=== PATIENT | male | born 1990 | race Two or more races ===

== ENCOUNTER 2017-11-02 15:08 | Emergency (ER) | payer SELFPAY ==
[~2017-11-02] VITALS: Ht 180.3 cm; Wt 111.1 kg
[2017-11-02 15:36] VITALS: BP 142/83
[2017-11-02] MEDS ORDERED: CEPH-264 PO (15:49)
--- NOTE | 2017-11-02 15:51 | PHYS DOC ---
Past Medical History Past Medical History: No Pertinent History Adult General Chief Complaint Chief Complaint: LACERATION/AVULSION HPI HPI 27-year-old male presents to ER with complaints of accidental laceration to left index finger last night approximately 5 PM while working on a vehicle and he thinks he cut finger on piece of metal on motor. Pt speaks primarily [place] and so translation phone offered for communication- Chantelle, girlfriend at bedside reports pt doesn't want to use phone and wants her to translate. She reports pt understands alot of [place] but isn't fluent in speaking [place]. Pt is uncertain of last tetanus update. Pt reports pain at laceration site with some difficulty bending distal joint of lt index finger. He denies taking any OTC medications for pain. He denies large amt of blood loss since injury- laceration has small amt of bleeding at time of initial exam. Pt denies numbness /tingling. Pt is rt hand dominant. Review of Systems Review of Systems Constitutional: Denies fatigue or weakness Musculoskeletal: Reports lt index finger pain at laceration site w/pain during bending/flexing of lt distal joint Integument: Denies rash or skin lesions. Reports laceration left index finger- no swelling, numbness or tingling Neurologic: Denies headache, focal weakness or sensory changes. Denies dizziness /lightheadedness All other systems were reviewed and found to be within normal limits, except as documented in this note. Current Medications Current Medications Current Medications Medications (Trade) Dose Ordered Sig/Rosina Start Time Stop Time Status Last Admin Dose Admin Diphtheria/ Tetanus/Acell Pertussis (Boostrix) 0.5 ml ONCE ONCE 11/02/17 16:00 11/02/17 16:01 DC 11/02/17 15:58 0.5 ML Lidocaine HCl (Lidocaine 1% 20ml Vial) 20 ml 1X ONCE 11/02/17 16:00 11/02/17 16:01 Cancel Lidocaine HCl (Xylocaine 1% Pf 30ml Vial) 20 ml 1X ONCE 11/02/17 16:00 11/02/17 16:01 DC 11/02/17 15:58 20 ML Neomycin/ Polymyxin/ Bacitracin (Triple Antibiotic Ointment) 1 pkt 1X ONCE 11/02/17 16:00 11/02/17 16:01 DC 11/02/17 15:58 1 PKT Allergies Allergies Allergies Coded Allergies Type Severity Reaction Last Updated Verified No Known Drug Allergies 11/02/17 No Physical Exam Physical Exam Constitutional: Well developed, well nourished, no acute distress, non-toxic appearance. [] HENT: Normocephalic, atraumatic Eyes: PERRLA, conjunctiva normal, no discharge. [] Neck: Normal range of motion, supple Cardiovascular:Heart rate regular rhythm Lungs & Thorax: Resp. equal/nonlabored Skin: Warm, dry, no erythema, no rash. [] Extremities: No cyanosis, no clubbing, no edema. Laceration to distal dorsal surface of lt index finger with no nailbed involvement- no ecchymosis or swelling- tender to palp. Cap refill brisk in all lt fingers. Flexor tendon intact against resistance lt index finger- slight decrease in extension of distal joint w/pt reporting increased pain with movement Neurologic: Alert and oriented X 3, normal motor function, normal sensory function, no focal deficits noted. Steady gait Psychologic: Affect normal, judgement normal, mood normal. [] Current Patient Data Vital Signs Vital Signs Date Time Temp Pulse Resp B/P (MAP) Pulse Ox O2 Delivery O2 Flow Rate FiO2 11/02/17 15:36 97.6 87 12 142/83 (102) 98 Room Air 97.6 EKG EKG [] Radiology/Procedures Radiology/Procedures [] Course & Med Decision Making Course & Med Decision Making Following discussion on plans to perform digital block on left index finger patient opted for no anesthesia to left index finger and preferred to have the wound cleansed with Steri-Strip application. Pt tolerated thorough cleansing with no neuro or vascular changes and left upper extremity. Patient had minimal blood loss. 2 Steri-Strips were applied to loosely approximate wound and thin layer of triple antibiotic ointment was applied to lac site. Nonadherant drsg with Cap refill remained brisk in left index finger. No tendon or ligament injury found during wound cleanse. Aluminum splint was applied to lt index finger. Pt was offered tylenol/ibuprofen preferred none while in ER. Home wound care was discussed along with education on s&s to return to ER for. Pt was educated on removing aluminum splint performing ROM of lt index to prevent joint lock/stiffness and also for monitoring skin/lac condition. Pt was updated on tetanus while in ER. Rx for Keflex will be provided with discharge paperwork. Discharge instructions were discussed. Dragon Disclaimer Dragon Disclaimer This electronic medical record was generated, in whole or in part, using a voice recognition dictation system. Departure Departure Impression: Primary Impression: Laceration of finger Additional Impression: Need for tetanus booster Disposition: 01 HOME, SELF-CARE Condition: STABLE Patient Instructions: Laceration Care, Adult Additional Instructions: As your laceration was not able to be closed with stitches you had a steri- strip and dressing applied along with triple antibiotic ointment- you should monitor skin for signs of infection. Tylenol and/or Ibuprofen as needed for pain control as directed on container. You did receive an update on your tetanus vaccine while in the Emergency Department. Scripts Cephalexin (KEFLEX) 500 Mg Capsule 500 MG PO BID for 7 Days, #14 CAP Prov: CHANTELLE ORANTES APRN 11/02/17 Problem Qualifiers CHANTELLE ORANTES APRN Nov 02, 2017 15:50
[2017-11-02] MEDS ORDERED: LIDOCAINE 1% Multi-Dose 20 ML VIAL. INJ ONE (16:00)
[2017-11-02] MEDS ORDERED: NEOMY/BACITR/POLYMYXIN OINT PACKET. TP ONE (16:00)
[2017-11-02] MEDS ORDERED: DIPHTH,PERTUSS(ACELL),TET TOX 0.5 ML DISP.SYRIN. VAX IM ONE (16:00)
[2017-11-02] MEDS ORDERED: LIDOCAINE 1% PF 30 ML VIAL. INJ ONE (16:00)
== END 2017-11-02 16:29 | disposition home or self-care (01) ==
LOC: ER 15:08
DX: S61.211A Laceration without foreign body of left index finger without damage to nail, initial encounter (principal); Z23 Encounter for immunization; W31.1XXA Contact with metalworking machines, initial encounter; Y93.89 Activity, other specified; Y92.89 Other specified places as the place of occurrence of the external cause; Y99.8 Other external cause status
CPT/HCPCS: 29130; 90471; 90715; 96372; 99284-25